=== PATIENT | female | born 1995 | race Caucasian/White ===

== ENCOUNTER 2016-05-11 15:07 | Emergency (ER) | payer OTHER ==
[~2016-05-11] VITALS: Ht 157.5 cm; Wt 73.0 kg
[~2016-05-11 15:07] MED LIST: HC1C30 TOP
[2016-05-11 15:11] VITALS: Ht 157.5 cm; Wt 73.0 kg
[2016-05-11] MEDS ORDERED: IBUP-1542 PO (16:22)
[2016-05-11] MEDS ORDERED: CYCL-319 PO (16:23)
--- NOTE | 2016-05-11 16:29 | ERD ---
ER Documentation Chief Complaint Date/Time DATE: 05/11/16 TIME: 16:24 Chief Complaint BACK PAIN X 5 HRS HPI Patient is a 21-year-old female who presents to the emergency department with lower back pain 5 hours. Patient states she woke up this morning and was unable to sit up or walk secondary to the pain. Patient states that she went to bed she did not have any pain. Patient denies any falls or trauma. Patient denies any urinary incontinence, stool incontinence and night pain. States her current pain level is a 7 out of 10. Patient is able to sit up now. Patient is able to ambulate without any difficulty. Patient does also report some throat pain. Patient denies any trismus, drooling or hyperextension of her neck. Patient denies any fevers, chills, nausea, vomiting, cough, ear pain, chest pain, shortness of breath or loss consciousness. She is also complaining of urinary symptoms including dysuria and frequency. Patient denies any hematuria. Patient states her last menstrual period was 1 week ago. ROS All systems reviewed and are negative except as per history of present illness. Medications Home Meds Active Scripts Nitrofurantoin Monohyd Macrocr* (Macrobid*) 100 Mg Capsr, 100 MG PO BID for 5 Days, CAP Prov:HAILEY STEWART PA-C 05/11/16 Cyclobenzaprine Hcl* (Cyclobenzaprine Hcl*) 10 Mg Tablet, 10 MG PO TID, #15 TAB Prov:HAILEY STEWART PA-C 05/11/16 Ibuprofen* (Motrin*) 600 Mg Tab, 600 MG PO Q6, #30 TAB Prov:HAILEY STEWART PA-C 05/11/16 Hydrocortisone* Topical (Hydrocortisone* Topical) 1%-28.35 Gm Cream..g., 1 APPLIC TOP Q6 Y for ITCHING, #1 TUB Prov:JEN KINCAID MD 10/30/14 Allergies Allergies: Coded Allergies: No Known Allergy (Unverified , 10/30/14) PMhx/Soc Medical and Surgical Hx: pt denies Medical Hx, pt denies Surgical Hx Hx Alcohol Use: Yes (socially) Hx Substance Use: No Hx Tobacco Use: No Smoking Status: Never smoker FmHx Family History: No diabetes Physical Exam Vitals Vital Signs Date Time Temp Pulse Resp B/P Pulse Ox O2 Delivery O2 Flow Rate FiO2 05/11/16 15:11 98.2 85 20 121/83 99 Physical Exam GENERAL: Well-developed, well-nourished female. Appears in no acute distress. Speaking in full sentences. HEAD: Normocephalic, atraumatic. No deformities or ecchymosis. EYE: Pupils equal, round, and reactive to light. EOMs intact. No conjunctival erythema. No eye discharge. ENT: External ear without any masses or tenderness. Auditory canals clear bilaterally. TM visualized bilaterally, non-erythematous, non-bulging. Nasal mucosa pink with no discharge. Oropharynx is pink without any tonsillar erythema or exudates. No uvula deviation. No kissing tonsils. NECK: Supple. No meningismus. Normal ROM of the neck. LUNG: Clear to auscultation bilaterally. No rhonchi, wheezing, rales or coarse breath sounds. HEART: Regular rate and rhythm. No murmurs, rubs or gallops. ABDOMEN: Soft, nontender, and nondistended. Positive bowel sounds in all four quadrants. No rebound tenderness, no guarding. (-) McBurney's point tenderness. No CVA tenderness. BACK: No midline tenderness. Tender palpation of bilateral paraspinous lumbar muscles. Negative straight leg raise bilaterally. EXTREMITES: Equal pulses bilaterally. No peripheral clubbing, cyanosis or edema. No unilateral leg swelling. NEUROLOGIC: Alert and oriented to person, place and time. Moving all four extremities. 5/5 strength in all extremities. Normal speech. Steady gait. SKIN: Normal color. Warm and dry. No rashes or lesions. Results 24 hrs Laboratory Tests Test 05/11/16 16:36 Bedside Urine pH (LAB) 6.0 Bedside Urine Protein (LAB) 1+ Bedside Urine Glucose (UA) Negative Bedside Urine Ketones (LAB) Negative Bedside Urine Blood Trace-intact Bedside Urine Nitrite (LAB) Negative Bedside Urine Leukocyte Esterase (L Trace Procedures/MDM MEDICAL DECISION MAKING: This is a 21-year-old female who presents with vital signs were reviewed. Patient was afebrile. Patient denied any saddle anesthesia, urinary incontinence , bowel incontinence, night pain or recent trauma. Patient was offered x-ray imaging of the lumbar spine however she and her mother declined. Urine dip showed trace leukocyte esterase. Given that patient had some symptoms of a UTI , I will empirically treat the patient. Given these findings, the patient's presentation is most consistent with lumbar strain and UTI. I have a much lower clinical concern for cauda equine syndrome, spinal fractures, epidural abscess, spinal metastases, osteomyelitis, aortic dissection, ruptured or leaking AA, DJD , sciatica, pyelonephritis or nephrolithiasis. PRESCRIPTIONS: Ibuprofen, Flexeril, Macrobid DISCHARGE: At this time, patient is stable for discharge and outpatient management. RICE therapy and ROM exercises were advised to avoid stiffness. I have instructed the patient to follow-up with his/her primary care physician in 1-2 days. I have discussed with the patient the possibility of needing to see an child care specialist for further workup and imaging if the pain persists. I have instructed the patient to promptly return to the ER for any new or worsening symptoms including increased pain, swelling, warmth, urinary incontinence, stool incontinence, weakness or numbness. The patient and/or family expressed understanding of and agreement with this plan. All questions were answered. Home care instructions were provided. Departure Diagnosis: Primary Impression: Back pain Back pain location: back pain in unspecified location Chronicity: acute Back pain laterality: bilateral Qualified Code: M54.9 - Acute bilateral back pain, unspecified back location Condition: Stable Patient Instructions: Back Pain (Acute Or Chronic) Referrals: JOAO MARQUEZ (PCP) Additional Instructions: Call your primary care doctor TOMORROW for an appointment during the next 1-2 days.See the doctor sooner or return here if your condition worsens before your appointment time. Only take muscle relaxants when at home, do not use when driving or operating machinery. HAILEY STEWART PA-C May 11, 2016 16:29 HAILEY STEWART PA-C May 11, 2016 16:29
[2016-05-11 16:37] LABS: URINE BLOOD (Dip) POC Trace-intact (NEGATIVE)
[2016-05-11] MEDS ORDERED: NITR-58 PO (17:32)
== END 2016-05-11 18:00 | disposition home or self-care (01) ==
LOC: FTE 15:07
DX: M54.5 Low back pain (principal)
CPT/HCPCS: 81003; Z7502; 99284